=== PATIENT | female | born 1945 | race Caucasian/White ===

== ENCOUNTER 2017-04-13 14:25 | Outpatient (CLI) | payer MEDICARE, MEDICAID ==
[~2017-04-13 14:25] MED LIST: ACET325T53 PO; ASCO500C16 PO; ATOR10TA PO; BISA-79 RC; DIVA500T2 PO; FURO-144 PO; GABA-534 PO; HYDR-552 PO; LOSA50TA21 PO; MAGN400O4 PO; MULT1TAB73 PO; NA P133E RC; OXYC-128 PO; POTA20TA83 PO; RANI150C4 PO; SPIR25TA4 PO; TRAM50TA92 PO; ZOLP5TAB2 PO
[2017-04-13] MEDS ORDERED: DILT120C87 PO (16:37)
[2017-04-13] MEDS ORDERED: AMIN30LI4 PO (16:37)
[2017-04-13] MEDS ORDERED: FURO20TA4 PO (16:37)
[2017-04-13] MEDS ORDERED: PANT40TA2 PO (16:37)
[2017-04-13] MEDS ORDERED: CALC-108 PO (16:37)
[2017-04-13] MEDS ORDERED: MULT-659 PO (16:37)
[2017-04-13] MEDS ORDERED: NUTR1PAC14 PO (16:37)
== END 2017-04-13 23:59 | disposition home or self-care (01) ==
LOC: WOU 14:25
PROVIDERS: ATTEND Surgery
DX: I70.245 Atherosclerosis of native arteries of left leg with ulceration of other part of foot (principal); L97.523 Non-pressure chronic ulcer of other part of left foot with necrosis of muscle; I70.235 Atherosclerosis of native arteries of right leg with ulceration of other part of foot; L97.514 Non-pressure chronic ulcer of other part of right foot with necrosis of bone; F03.90 Unspecified dementia, unspecified severity, without behavioral disturbance, psychotic disturbance, mood disturbance, and anxiety; R60.0 Localized edema; L03.116 Cellulitis of left lower limb; L03.115 Cellulitis of right lower limb; I25.10 Atherosclerotic heart disease of native coronary artery without angina pectoris; I10 Essential (primary) hypertension
CPT/HCPCS: 11043; 11044; A6402

== ENCOUNTER 2017-04-13 15:59 | Inpatient (IN) | payer MEDICARE, MEDICAID ==
[~2017-04-13] VITALS: Ht 165.1 cm; Wt 77.6 kg
[2017-04-13] MEDS ORDERED: NUTR1PAC14 PO (16:37)
[2017-04-13] MEDS ORDERED: AMIN30LI4 PO (16:37)
[2017-04-13] MEDS ORDERED: PANT40TA2 PO (16:37)
[2017-04-13] MEDS ORDERED: DILT120C87 PO (16:37)
[2017-04-13] MEDS ORDERED: CALC-108 PO (16:37)
[2017-04-13] MEDS ORDERED: FURO20TA4 PO (16:37)
[2017-04-13] MEDS ORDERED: MULT-659 PO (16:37)
[2017-04-13 16:48] LABS: BASOPHILS % (AUTO) 0.5 % (0.0-2.0); EOSINOPHILS # (AUTO) 0.2 /CMM (0.0-0.7); EOSINOPHILS % (AUTO) 2.7 % (0.0-6.0); HEMATOCRIT 43 % (33-45); HEMOGLOBIN 14.1 g/dL (11.5-14.8); LYMPHOCYTES # (AUTO) 1.5 /CMM (0.8-4.8); LYMPHOCYTES % (AUTO) 17.1 % (20.0-44.0); MEAN CORPUSCULAR HEMOGLOBIN 29 PG (26.0-33.0); MEAN CORPUSCULAR HGB CONC 33 g/dl (31.0-36.0); MEAN CORPUSCULAR VOLUME 88 fL (82-100); MONOCYTES # (AUTO) 0.8 /CMM (0.1-1.30); MONOCYTES % (AUTO) 8.7 % (2.0-12.0); NEUTROPHILS # (AUTO) 6.5 /CMM (1.8-8.9); PLATELET COUNT (AUTO) 352 /CMM (150-450); RDW COEFFICIENT OF VARIATION 12.3 (11.5-15.0); RED BLOOD CELL COUNT(AUTO) 4.87 MIL/uL (4.0-5.2)
--- NOTE | 2017-04-13 16:52 | NUR ---
BIB WOUND CARE NURSE FROM [facility] FOR [facility]MISSION FOR OSTEOMYELITIS, PATIENT IS VERBALLY RESPONSIVE, A/OX 1, HAS CAREGIVER AT BEDSIDE, SEEN BY MD AT BEDSIDE, WILL CONTINUE TO MONITOR CLOSELY.
[2017-04-13 16:57] LABS: CREATININE 0.8 mg/dL (0.6-1.3); POTASSIUM 3.5 mmol/L (3.5-5.1)
[2017-04-13 17:01] LABS: CALCIUM, SERUM 8.7 mg/dL (8.5-10.1); INR 0.99 (0.87-1.13); PROTHROMBIN TIME 10.3 SECS (9.5-12.7)
--- NOTE | 2017-04-13 17:07 | NUR ---
SACK REPAIRER AT BEDSIDE
--- NOTE | 2017-04-13 17:30 | NUR ---
REPORT GIVEN TO EDDIE OGDEN
[2017-04-13 20:00] VITALS: BP 152/83
[2017-04-13] MEDS ORDERED: ACETAMINOPHEN 325 MG TABLET PO PRN (20:00)
[2017-04-13] MEDS ORDERED: MAGNESIUM HYDROXIDE 30 ML UDC PO PRN (20:00)
[2017-04-13] MEDS ORDERED: HOME MED MISCELLANEOUS XX SCH (20:00)
[2017-04-13] MEDS ORDERED: TRAMADOL HCL 50 MG TABLET PO PRN (20:00)
--- NOTE | 2017-04-13 20:00 | NUR ---
MS RN NOTE: PATIENT RESTING IN BED, NO ACUTE DISTRESS NOTED. BREATHING EVEN AND UNLABORED, NO SOB NOTED. WOUNDS TO BOTH FEET WRAPPED WITH KERLIX. IV TO LAC IN PLACE. BED LOCKED AND IN LOWEST POSITION, CALL LIGHT IN REACH. WILL CONTINUE TO MONITOR.
--- NOTE | 2017-04-14 03:15 | NUR ---
MS RN NOTE: PATIENT SLEEPING IN BED, NO ACUTE DISTRESS NOTED. BREATHING EVEN AND UNLABORED, NO SOB NOTED. BED LOCKED AND IN LOWEST POSITION, CALL LIGHT IN REACH. WILL CONTINUE TO MONITOR.
--- NOTE | 2017-04-14 06:15 | NUR ---
MS RN NOTE: PATIENT RESTING IN BED, NO ACUTE DISTRESS NOTED. BREATHING EVEN AND UNLABORED, NO SOB NOTED. WOUNDS TO BOTH FEET WRAPPED WITH KERLIX. IV TO LAC IN PLACE. BED LOCKED AND IN LOWEST POSITION, CALL LIGHT IN REACH. WILL ENDORSE TO DAY NURSE TO CONTINUE WITH PLAN OF CARE.
[2017-04-14 06:38] LABS: BASOPHILS % (AUTO) 0.2 % (0.0-2.0); EOSINOPHILS # (AUTO) 0.3 /CMM (0.0-0.7); HEMATOCRIT 41 % (33-45); HEMOGLOBIN 13.7 g/dL (11.5-14.8); LYMPHOCYTES # (AUTO) 1.5 /CMM (0.8-4.8); MEAN CORPUSCULAR HEMOGLOBIN 30 PG (26.0-33.0); MEAN CORPUSCULAR HGB CONC 34 g/dl (31.0-36.0); MEAN CORPUSCULAR VOLUME 88 fL (82-100); MONOCYTES # (AUTO) 0.7 /CMM (0.1-1.30); MONOCYTES % (AUTO) 7.4 % (2.0-12.0); NEUTROPHILS # (AUTO) 6.4 /CMM (1.8-8.9); NEUTROPHILS % (AUTO) 72.4 % (43.0-81.0); PLATELET COUNT (AUTO) 314 /CMM (150-450); RDW COEFFICIENT OF VARIATION 13.1 (11.5-15.0); RED BLOOD CELL COUNT(AUTO) 4.61 MIL/uL (4.0-5.2); WHITE BLOOD COUNT (AUTO) 8.9 K/uL (4.3-11.0)
[2017-04-14 06:54] LABS: CALCIUM, SERUM 8.5 mg/dL (8.5-10.1); CREATININE 0.6 mg/dL (0.6-1.3); MAGNESIUM 1.9 mg/dL (1.8-2.4); PHOSPHORUS 3.4 mg/dL (2.5-4.9); POTASSIUM 3.6 mmol/L (3.5-5.1)
[2017-04-14 07:00] LABS: PREALBUMIN 17.6 MG/DL (18.0-35.7); THYROID STIMULATING HORMONE 4.429 uIU/mL (0.358-3.74)
--- NOTE | 2017-04-14 07:20 | NUR ---
RN MS NOTES PATIENT IN BED, ALERT AND ORIENTED, NO DISTRESS NOTED, NO S/SX OF PAIN, TURNED AND REPOSITIONED, NEEDS ATTENDED AND MET, CALL LIGHT WITHIN REACH, SAFETY MEASURES IN PLACED, WILL CONTINUE TO MONITOR.
[2017-04-14 08:00] VITALS: BP 149/87
[2017-04-14] MEDS: PANTOPRAZOLE 40 MG TABLET.DR PO SCH (09:01)
[2017-04-14] MEDS: DILTIAZEM HCL CD 120 MG PO SCH (09:02)
[2017-04-14] MEDS: GABAPENTIN 300 MG CAPSULE PO SCH ×2 (09:02→17:32)
[2017-04-14] MEDS: MULTIVIT, IRON, MIN NO. 8, FA 1 TAB TABLET PO SCH (09:02)
[2017-04-14] MEDS: FUROSEMIDE 20 MG TABLET PO SCH (09:02)
[2017-04-14] MEDS: PROSOURCE / PROSTAT (PYXIS) 30 ML UDC PO SCH (09:02)
[2017-04-14] MEDS: ASCORBIC ACID 500 MG TABLET PO SCH (09:02)
[2017-04-14] MEDS: CALCIUM CARB 600MG /VIT D 1 EACH TABLET PO SCH (09:02)
[2017-04-14] MEDS: POTASSIUM CHLORIDE 20 MEQ TAB.PRT.SR PO SCH (09:02)
[2017-04-14] MEDS ORDERED: IV SET PRIMARY PUMP SET 1 EA INFUS.SET MC ONE (09:04)
[2017-04-14] MEDS ORDERED: IV NS 0.9% 250 ML IV ONE (09:04)
[2017-04-14] MEDS ORDERED: FEE PK DOSING 1 MIN EA MC ONE (10:04)
[2017-04-14] MEDS: VANCOMYCIN 0.75 GM in IV D5W 250 ML IV SCH ×2 (10:19→21:48)
[2017-04-14] MEDS ORDERED: SECONDARY IV SET 1 EA INFUS.SET MC ONE (10:27)
--- NOTE | 2017-04-14 11:13 | NUR ---
WOUND CARE CONSULT PATIENT SEEN AND SKIN INTEGRITY ASSESSMENT DONE WITH THE EXCEPTION OF BILATERAL FOOT ULCERATIONS. WOUND CARE WILL DEFER FOOT ULCER CARE AND TREATMENT TO PODIATRY SURGICAL TEAM AT THIS TIME. THERE ARE NOTED ORDERS FOR TREATMENT FOR THE BILATERAL FOOT ULCERS IN PLACE. PATIENT WITH CARMEN AT 13, PATIENT IS INCONTINENT. 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 RECOMMEND TURNING SCHED Q 2 HOURS PATIENT CONDITION PERMITS, BILATERAL HEEL FLOATING PATIENT CONDITION PERMITS, THIS WILL BE DIFFICULT DUE TO THE CONTRACTURES. CONTINUE USE OF Z GUARD FOR SKIN/MOISTURE MANAGEMENT. ALL SKIN MANAGEMENT DISCUSSED WITH NURSING STAFF AT THE BEDSIDE. Addendum: 04/14/17 at 1125 by SANAZ CLEMENTE WNDNU BILINGUAL SPEECH LANGUAGE PATHOLOGIST ADDENDUM PATIENT ON BETTE ISOFLEX LOW AIRLOSS SPECIALTY BED, SACRAL AND BUTTOCKS REGIONS INTACT. NO FURTHER REDNESS NOTED AT THIS TIME.
[2017-04-14] MEDS: Z GUARD REMEDY 2 OZ OINT TP SCH (11:30)
[2017-04-14] MEDS ORDERED: Z GUARD REMEDY 2 OZ OINT TP PRN (11:30)
[2017-04-14] MEDS: CADEXOMER IODINE 40 GM TUBE TP SCH (11:42)
--- NOTE | 2017-04-14 12:22 | NUR ---
RN MS NOTES INFORMED DR. CISNEROS RE" PATIENT'S URINE WITH FOUL ODOR, RECEIVED NEW ORDER FOR UA PROFILE, ORDER NOTED AND CARRIED OUT. WOUND TREATMENT RENDERED, TURNED AND REPOSITIONED, WILL CONTINUE TO MONITOR.
--- NOTE | 2017-04-14 13:46 | NUR ---
RN MS NOTES INFORMED RONNIE FIRE WARDEN MRI CANNOT BE DONE DUE TO BLE CONTRACTION.
--- NOTE | 2017-04-14 15:00 | NUR ---
RN MS NOTES RECEIVED NEW ORDER FROM RONNIE FOR A CT WITH CONTRAST OF BILATERAL FOOT, ARTERIAL AND VENOUS DOPPLER COMPLETED. PATIENT TURNED AND REPOSITIONED, BILATERAL HEELS OFFLOADED, Z-GUARD APPLIED FOR REDNESS ON SACRAL, CALL LIGHT WITHIN REACH, WILL CONTINUE TO MONITOR.
[2017-04-14 16:00] VITALS: BP 138/79
[2017-04-14 17:03] LABS: APPEARANCE,URINE SL CLOUDY (CLEAR); BILIRUBIN,URINE NEGATIVE (NEGATIVE); BLOOD, URINE NEGATIVE Ery/uL (NEGATIVE); COLOR,URINE YELLOW (YELLOW); KETONES,URINE NEGATIVE (NEGATIVE); LEUKOCYTE ESTERASE ,URINE 2+ (NEGATIVE); NITRITE, URINE POSITIVE (NEGATIVE); PH,URINE 6.5 (5.0-8.0); PROTEIN,URINE NEGATIVE (NEGATIVE); UGLUCOSE NEGATIVE (NEGATIVE); UROBILINOGEN,URINE 0.2 EU/dL (0.2)
[2017-04-14 17:10] LABS: RBC,URINE 0-2 /HPF (0-2); SQUAMOUS EPITHELIAL CELL,UR Few /HPF (None Seen)
[2017-04-14 17:11] LABS: BACTERIA,URINE 2+ /HPF (None Seen)
--- NOTE | 2017-04-14 18:57 | NUR ---
RN MS NOTES PATIENT IN BED, ALERT AND ORIENTED, CONFUSED, TURNED AND REPOSITIONED, OFFLOADED BILATERAL HEELS, WOUND TREATMENT RENDERED, URINE CULTURE STILL PENDING, CT SCAN WITH CONTRAST STILL PENDING, RADIOLOGY AWARE, ALL NEEDS ATTENDED AND MET, CALL LIGHT WITHIN REACH, WILL ENDORSE TO PEDIATRIC DENTAL HYGIENIST FOR GOPAL.
--- NOTE | 2017-04-14 20:02 | NUR ---
MS OPENING NOTES RECEIVED PT IN ROOM. SITTING UP IN BED. AWAKE. CONFUSED. RESPIRATION EVEN AND UNLABORED. NO SOB. IV ON LAC#20 PATENT AND INTACT. NO REDNESS/INFILTRATION NOTED. NO ACUTE DISTRESS NOTED. ON ISOLATION FOR MRSA NARES, ESBL. NO COMPLAIN OF PAIN/DISCOMFORT NOTED. FREE FROM FALLS AND INJURY. TURNED AND POSITIONED Q2 HRS. KEPT CLEAN AND DRY AT ALL TIMES. BED IN LOW AND LOCKED POSITION. SIDERAILS UP X2. CALL LIGHT WITHIN REACH. WILL CONTINUE TO MONITOR FOR SAFETY.
[2017-04-14 20:44] VITALS: BP 169/93
--- NOTE | 2017-04-15 05:40 | NUR ---
MSN NOTES PATIENT RESTING IN BED. RESPIRATION EVEN AND UNLABORED. NO SOB. NO ACUTE DISTRESS NOTED. NO COMPLAIN OF PAIN/DISCOMFORT AT THIS TIME. KEPT CLEAN AND DRY. ALL NEEDS ATTENDED AND ANTICIPATED. BED IN LOW AND LOCKED POSITION. SIDERAILS UPX2. CALL LIGHT WITHIN REACH. WILL ENDORSE TO NEXT SHIFT NURSE FOR CONTINUITY OF CARE.
[2017-04-15 06:46] LABS: CALCIUM, SERUM 8.4 mg/dL (8.5-10.1); CREATININE 0.7 mg/dL (0.6-1.3); POTASSIUM 3.6 mmol/L (3.5-5.1)
--- NOTE | 2017-04-15 07:35 | NUR ---
RN MS NOTES PATIENT IN BED, ALERT AND ORIENTED, NO S/SX OF PAIN OR DISCOMFORT AT THIS TIME, BREATHING EVEN AND UNLABORED, TURNED AND REPOSITION, KEPT SKIN CLEAN AND DRY, NEEDS ATTENDED, CALL LIGHT WITHIN REACH, WILL CONTINUE TO MONITOR.
[2017-04-15 08:00] VITALS: BP 128/70
[2017-04-15] MEDS: GABAPENTIN 300 MG CAPSULE PO SCH ×2 (08:45→17:27)
[2017-04-15] MEDS: ASCORBIC ACID 500 MG TABLET PO SCH (08:45)
[2017-04-15] MEDS: PANTOPRAZOLE 40 MG TABLET.DR PO SCH (08:45)
[2017-04-15] MEDS: CALCIUM CARB 600MG /VIT D 1 EACH TABLET PO SCH (08:45)
[2017-04-15] MEDS: DILTIAZEM HCL CD 120 MG PO SCH (08:46)
[2017-04-15] MEDS: POTASSIUM CHLORIDE 20 MEQ TAB.PRT.SR PO SCH (08:46)
[2017-04-15] MEDS: PROSOURCE / PROSTAT (PYXIS) 30 ML UDC PO SCH (08:46)
[2017-04-15] MEDS: FUROSEMIDE 20 MG TABLET PO SCH (08:46)
[2017-04-15] MEDS: MULTIVIT, IRON, MIN NO. 8, FA 1 TAB TABLET PO SCH (08:51)
[2017-04-15] MEDS: CADEXOMER IODINE 40 GM TUBE TP SCH (08:52)
[2017-04-15] MEDS: Z GUARD REMEDY 2 OZ OINT TP SCH (08:52)
[2017-04-15] MEDS: VANCOMYCIN 0.75 GM in IV D5W 250 ML IV SCH ×2 (11:24→21:33)
--- NOTE | 2017-04-15 13:07 | NUR ---
FOR CT BILAT FOOT, PT VERY CONTRACTED AND HAS DEMENTIA. UNABLE TO STRAIGHTEN LEGS RN AWARE
--- NOTE | 2017-04-15 13:46 | NUR ---
RN MS NOTES NO DISTRESS NOTED, CT SCAN STILL PENDING, NO S/SX OF PAIN OR DISCOMFORT NOTED, TURNED AND REPOSITIONED, SKIN KEPT CLEAN AND DRY, NEEDS ATTENDED, RONNIE GREEN MADE ROUNDS, WILL CONTINUE TO MONITOR.
[2017-04-15 16:00] VITALS: BP 133/85
--- NOTE | 2017-04-15 17:25 | NUR ---
WENT TO SEE THE PT. AROUND 1520, PT. CONTRACTED, UNABLE TO STRAIGHT LEG FOR CT. INFORMED NURSE.
--- NOTE | 2017-04-15 17:48 | NUR ---
RN MS NOTES INFORMED RONNIE CT SCAN CANNOT BE COMPLETED PER SIGNAL OPERATOR LINGUIST, PER GEODETIC COMPUTATOR OK, WILL ORDER X-RAY OF THE FOOT.
[2017-04-15 19:00] VITALS: BP 128/69
--- NOTE | 2017-04-15 19:25 | NUR ---
RN MS NOTES IN STABLE CONDITION, TURNED AND REPOSITIONED Q2H AND PRN, WOUND TREATMENT DONE, KEPT SKIN CLEAN AND DRY, PIV PATENT AND INTACT, NEEDS ATTENDED AND MET, CALL LIGHT WITHIN REACH, ENDORSED TO MEASURER FOR GOPAL.
--- NOTE | 2017-04-15 19:30 | NUR ---
MS RN NOTES RECEIVED ON BED ON RIGHT SIDE POSITION,BREATHING REGULAR,NOT IN ANY FORM OF DISTRESS.SALINE LOCK LFA INTACT AND PATENT.CONTRACTED BOTH LOWER EXTREMITIES.FALL PRECAUTION OBSERVED,BED ON LOWEST POSITION AND LOCK.CONTACT ISOLATION PRECAUTION FOR HX MRSA NARES AND ESBL BLOOD AND URINE.REPOSITION PER PROTOCOL.WILL CONTINUE TO MONITOR STATUS
--- NOTE | 2017-04-15 22:00 | NUR ---
MS RN NOTES DUE VANCOMYCIN 0.75GM IVPB HUNG
--- NOTE | 2017-04-16 05:30 | NUR ---
MS RN NOTES MORNING CARE RENDERED.DRESSING CHANGED DONE ON BILATERAL FOOT.
--- NOTE | 2017-04-16 06:36 | NUR ---
MS RN NOTES FAIRLY RESTED,REPOSITION PER PROTOCOL.IN NO ACUTE DISTRESS.WILL ENDORSED TO DAY NURSE FOR GOPAL.
--- NOTE | 2017-04-16 07:20 | NUR ---
RN MS NOTES PATIENT IN BED, SLEEPING BUT EASILY AROUSABLE, NO DISTRESS NOTED, KEPT SKIN CLEAN AND DRY, TURNED AND REPOSITIONED, OFFLOADED BILATERAL HEELS, NEEDS ATTENDED AND MET, SAFETY MEASURES IN PLACED, CALL LIGHT WITHIN REACH, WILL CONTINUE TO MONITOR.
[2017-04-16 07:37] LABS: CALCIUM, SERUM 8.5 mg/dL (8.5-10.1); CREATININE 0.8 mg/dL (0.6-1.3); POTASSIUM 3.5 mmol/L (3.5-5.1)
[2017-04-16 08:00] VITALS: BP 114/60
[2017-04-16] MEDS: PANTOPRAZOLE 40 MG TABLET.DR PO SCH (08:48)
[2017-04-16] MEDS: GABAPENTIN 300 MG CAPSULE PO SCH ×2 (08:49→16:50)
[2017-04-16] MEDS: ASCORBIC ACID 500 MG TABLET PO SCH (08:49)
[2017-04-16] MEDS: DILTIAZEM HCL CD 120 MG PO SCH (08:49)
[2017-04-16] MEDS: CALCIUM CARB 600MG /VIT D 1 EACH TABLET PO SCH (08:49)
[2017-04-16] MEDS: POTASSIUM CHLORIDE 20 MEQ TAB.PRT.SR PO SCH (08:49)
[2017-04-16] MEDS: FUROSEMIDE 20 MG TABLET PO SCH (08:49)
[2017-04-16] MEDS: PROSOURCE / PROSTAT (PYXIS) 30 ML UDC PO SCH (08:49)
[2017-04-16] MEDS: MULTIVIT, IRON, MIN NO. 8, FA 1 TAB TABLET PO SCH (08:49)
[2017-04-16] MEDS: Z GUARD REMEDY 2 OZ OINT TP SCH (08:50)
[2017-04-16] MEDS: CADEXOMER IODINE 40 GM TUBE TP SCH (08:50)
[2017-04-16] MEDS: VANCOMYCIN 0.75 GM in IV D5W 250 ML IV SCH ×2 (09:25→21:58)
[2017-04-16] MEDS ORDERED: PIPERACILLIN /TAZOBACTAM 3.375 G in IV D5W 50 ML IV SCH (15:00)
[2017-04-16 16:00] VITALS: BP 131/72
[2017-04-16] MEDS ORDERED: SECONDARY IV SET 1 EA INFUS.SET MC ONE (16:46)
[2017-04-16] MEDS: PIPERACILLIN /TAZOBACTAM 3.375 G in IV D5W 50 ML IV SCH ×2 (16:49→23:44)
--- NOTE | 2017-04-16 18:00 | NUR ---
RN MS NOTES PLACED A CALL TO [facility] TO [address] DR. PATHAK OR ANY STEAM SHOVEL OILER MD, TO RELAY URINE CULTURE RESULT OF ESBL IN URINE, WILL WAIT FOR A CALL BACK.
--- NOTE | 2017-04-16 18:27 | NUR ---
RN MS NOTES X-RAY COMPLETED, RESULT STILL PENDING, PATIENT IS IN NO DISTRESS, KEPT SKIN CLEAN AND DRY, TURNED AND REPOSITIONED, OFFLOADED KEN. HEELS, WOUND TREATMENT DONE ON BILATERAL FOOT, ALL NEEDS ATTENDED AND MET, DUE MEDS GIVEN ORDERED, CALL LIGHT WITHIN REACH, WILL ENDORSE TO NEWS CORRESPONDENT FOR GOPAL.
[2017-04-16 20:00] VITALS: BP 129/70
[2017-04-17] MEDS: PIPERACILLIN /TAZOBACTAM 3.375 G in IV D5W 50 ML IV SCH ×2 (06:04→11:33)
--- NOTE | 2017-04-17 06:32 | NUR ---
MS RN NOTES AWAKE & RESPONSIVE. NOT IN ANY DISTRESS. NO SOB NOTED. DENIES ANY PAIN OR DISCOMFORT AT THIS TIME. WITH IVF INFUSING WELL. AM CARE DONE. MONITORED ACCORDINGLY. CALL LIGHT WITHIN REACH. BED IN LOWEST POSITION. SR UP X 3 WITH BED ALARM ON FOR SAFETY. WILL ENDORSE TO NEXT SHIFT.
[2017-04-17 07:04] LABS: CALCIUM, SERUM 8.4 mg/dL (8.5-10.1); CREATININE 0.8 mg/dL (0.6-1.3); POTASSIUM 3.1 mmol/L (3.5-5.1)
--- NOTE | 2017-04-17 07:10 | NUR ---
MS RN OPENING NOTES RECEIVED PT FROM NIGHTSHIFT NURSE IN STABLE CONDITION. A/O 2. RESPONDS TO TOUCH AND NAME. PT. IS CONFUSED AND CONTRACTED. NO SOB OR SIGNS OF DISTRESS NOTED. 2+ PITTING EDEMA PRESENT ON BILATERAL FEET ALONG WITH WOUNDS WHICH ARE LIGHTLY WRAPPED IN KERLIX. IV PRESENT ON RIGHT HAND 24 G PATENT AND INTACT. NO REDNESS OR INFILTRATION NOTED. BED IN LOW LOCKED POSITION, SIDE RAILS UP X3, CALL LIGHT WITHIN REACH. WILL CONTINUE TO MONITOR. .
[2017-04-17 08:00] VITALS: BP 110/62
[2017-04-17] MEDS: FUROSEMIDE 20 MG TABLET PO SCH (08:35)
[2017-04-17] MEDS: PANTOPRAZOLE 40 MG TABLET.DR PO SCH (08:36)
[2017-04-17] MEDS: POTASSIUM CHLORIDE 20 MEQ TAB.PRT.SR PO SCH ×3 (08:36→12:33)
[2017-04-17] MEDS: ASCORBIC ACID 500 MG TABLET PO SCH (08:36)
[2017-04-17] MEDS: CALCIUM CARB 600MG /VIT D 1 EACH TABLET PO SCH (08:36)
[2017-04-17] MEDS: GABAPENTIN 300 MG CAPSULE PO SCH ×2 (08:37→17:43)
[2017-04-17] MEDS: CADEXOMER IODINE 40 GM TUBE TP SCH (08:37)
[2017-04-17] MEDS: DILTIAZEM HCL CD 120 MG PO SCH (08:37)
[2017-04-17] MEDS: PROSOURCE / PROSTAT (PYXIS) 30 ML UDC PO SCH (08:37)
[2017-04-17] MEDS: MULTIVIT, IRON, MIN NO. 8, FA 1 TAB TABLET PO SCH (08:37)
[2017-04-17] MEDS: Z GUARD REMEDY 2 OZ OINT TP SCH (08:38)
--- NOTE | 2017-04-17 08:40 | NUR ---
MS ALIN NOTES 0900 LASIX WAS HELD DUE TO LOW K+ OF 3.1
[2017-04-17] MEDS: VANCOMYCIN 0.75 GM in IV D5W 250 ML IV SCH (09:55)
[2017-04-17 16:00] VITALS: BP 136/71
[2017-04-17] MEDS: LACTOBACILLUS RHAMNOSUS GG 1 EACH CAP.SPRINK PO SCH (17:43)
[2017-04-17] MEDS ORDERED: SECONDARY IV SET 1 EA INFUS.SET MC ONE (18:06)
[2017-04-17] MEDS: MEROPENEM 1 G in IV NS 0.9% 100 ML IV SCH (18:13)
--- NOTE | 2017-04-17 19:00 | NUR ---
MS RN CLOSING NOTES PT. IN STABLE CONDITION. ALL NEEDS MET AND ORDERS CARRIED OUT ACCORDINGLY DURING SHIFT. NO ACUTE CHANGES IN CONDITION DURING SHIFT. PT. WAS KEPT DRY, HEELS WERE OFFLOADED, AND TURNED AND REPOSITIONED Q2 HR. WILL ENDORSE TO NIGHTSHIFT NURSE FOR GOPAL
--- NOTE | 2017-04-17 19:34 | NUR ---
ms/rn opening notes Patient alert, orientedx4. able to verbalize needs and stated" I want to leave AMA". also observed he removed his NG tube and verbalized that he does not need it. , Dr. Karla Clark was contacted about patients request and md made aware about ng tube removed by patient . Lumber Scaler, ALIN Yee was informed. patient agreed to sign the AMA paper. Assisted the patient. removed id band. belonging refused to be checked upon admission. and assisted to elevator.
[2017-04-17 20:00] VITALS: BP 135/72
--- NOTE | 2017-04-17 20:00 | NUR ---
ms/rn opening notes patient in bed, semi murphy position. alert, oriented x1. can respond with simple words. and make good eye contact. no s/s of sob or distress. infection control measures provided for isolation precaution .
[2017-04-17] MEDS: VANCOMYCIN 1 GM in IV D5W 250 ML IV SCH (22:08)
[2017-04-18] MEDS: MEROPENEM 1 G in IV NS 0.9% 100 ML IV SCH ×2 (05:19→17:32)
--- NOTE | 2017-04-18 06:22 | NUR ---
ms/rn notes patient in bed, awake, alertx1. being monitored and require assistance to remind patient not to pull/remove iv . iv atb administered w/ no s/s of adverse effects. reposition for comfort and wound care provided on ble/heels. will continue to monitor and endorse to am rn for continuity of care.
[2017-04-18 07:12] LABS: CALCIUM, SERUM 8.6 mg/dL (8.5-10.1); CREATININE 0.7 mg/dL (0.6-1.3); POTASSIUM 3.8 mmol/L (3.5-5.1)
--- NOTE | 2017-04-18 07:20 | NUR ---
MS RN NOTES: PT IN BED, AWAKE, REMAINS A/O X1, ABLE TO MAKE NEEDS KNOWN,REORIENTED NEEDED, DENIES ANY PAIN OR DISCOMFORT AT THIS TIME, REMAINS ON RA, RESPIRATIONS EVEN AND UNLABORED. IV ACCESS PATENT AND INTACT, NO REDNESS OR INFILTRATION NOTED. VS REMAINS STABLE, ALL NEEDS ATTENDED. WILL CONTINUE TO MONITOR
[2017-04-18 08:00] VITALS: BP 149/100
[2017-04-18] MEDS: POTASSIUM CHLORIDE 20 MEQ TAB.PRT.SR PO SCH (08:58)
[2017-04-18] MEDS: CALCIUM CARB 600MG /VIT D 1 EACH TABLET PO SCH (08:58)
[2017-04-18] MEDS: MULTIVIT, IRON, MIN NO. 8, FA 1 TAB TABLET PO SCH (08:58)
[2017-04-18] MEDS: LACTOBACILLUS RHAMNOSUS GG 1 EACH CAP.SPRINK PO SCH ×2 (08:58→16:11)
[2017-04-18] MEDS: PROSOURCE / PROSTAT (PYXIS) 30 ML UDC PO SCH (08:58)
[2017-04-18] MEDS: DILTIAZEM HCL CD 120 MG PO SCH (08:59)
[2017-04-18] MEDS: FUROSEMIDE 20 MG TABLET PO SCH (08:59)
[2017-04-18] MEDS: GABAPENTIN 300 MG CAPSULE PO SCH ×2 (08:59→16:11)
[2017-04-18] MEDS: PANTOPRAZOLE 40 MG TABLET.DR PO SCH (09:00)
[2017-04-18] MEDS: ASCORBIC ACID 500 MG TABLET PO SCH (09:00)
[2017-04-18] MEDS: CADEXOMER IODINE 40 GM TUBE TP SCH (09:05)
[2017-04-18] MEDS: Z GUARD REMEDY 2 OZ OINT TP SCH (09:05)
[2017-04-18] MEDS: VANCOMYCIN 1 GM in IV D5W 250 ML IV SCH ×2 (09:41→22:09)
[2017-04-18] MEDS ORDERED: ONDANSETRON HCL/PF 4 MG/2 ML VIAL IV PRN (13:30)
[2017-04-18 16:00] VITALS: BP 127/78
--- NOTE | 2017-04-18 16:30 | NUR ---
MS RN NOTES RECEIVED ON BED, ON SITTING POSITION,CONFUSED BUT CALM.CONTRACTED ON BOTH LOWER EXTREMITIES.INCONTINENT OF URINE,BILATERAL FOOT DRESSING INTACT AND DRY.REPOSITION PER PROTOCOL,ISOLATION PRECAUTION FOR ESBL URINE.SALINE LOCK LOCK RFA INTACT AND PATENT.WILL CONTINUE TO MONITOR STATUS.
--- NOTE | 2017-04-18 19:11 | NUR ---
MS RN NOTES: PT IN BED, AWAKE, REMAINS A/O X1, ABLE TO MAKE NEEDS KNOWN,REORIENTED NEEDED, DENIES ANY PAIN OR DISCOMFORT AT THIS TIME, REMAINS ON RA, RESPIRATIONS EVEN AND UNLABORED. IV ACCESS PATENT AND INTACT, NO REDNESS OR INFILTRATION NOTED. VS REMAINS STABLE, ALL NEEDS ATTENDED.ENDORSED TO NEXT SHIFT FOR CONTINUITY OF CARE
[2017-04-18 20:00] VITALS: BP 144/92
[2017-04-18] MEDS: HEPARIN SODIUM, PORCINE 5000 UNITS/1 ML VIAL SQ SCH (21:01)
--- NOTE | 2017-04-18 22:00 | NUR ---
MS RN NOTES DUE VANCOMYCIN IVPB HUNG
--- NOTE | 2017-04-18 22:30 | NUR ---
MS RN NOTES PM CARE RENDERED BY MARCELINO LUO,REPOSITION TO LEFT SIDE
--- NOTE | 2017-04-19 02:00 | NUR ---
MS RN NOTES REPOSITION,KEPT WARM AND COMFORTABLE
--- NOTE | 2017-04-19 05:00 | NUR ---
MS RN NOTES MORNING CARE RENDERED BY MARCELINO LUO,REPOSITION
[2017-04-19] MEDS: MEROPENEM 1 G in IV NS 0.9% 100 ML IV SCH ×2 (06:00→17:13)
--- NOTE | 2017-04-19 06:00 | NUR ---
MS RN NOTES DUE MERREM 1GM IVPB HUNG
--- NOTE | 2017-04-19 07:11 | NUR ---
MS RN NOTES NO SIGNIFICANT CHANGE IN STATUS,CONTINUE WITH PLAN OF CARE.ENDORSED TO DAPHNE OGDEN FOR GOPAL.
[2017-04-19 07:13] LABS: BASOPHILS % (AUTO) 0.2 % (0.0-2.0); EOSINOPHILS # (AUTO) 0.2 /CMM (0.0-0.7); EOSINOPHILS % (AUTO) 2.8 % (0.0-6.0); HEMATOCRIT 41 % (33-45); HEMOGLOBIN 13.9 g/dL (11.5-14.8); LYMPHOCYTES # (AUTO) 1.7 /CMM (0.8-4.8); LYMPHOCYTES % (AUTO) 20.5 % (20.0-44.0); MEAN CORPUSCULAR HEMOGLOBIN 30 PG (26.0-33.0); MEAN CORPUSCULAR HGB CONC 34 g/dl (31.0-36.0); MEAN CORPUSCULAR VOLUME 88 fL (82-100); MONOCYTES # (AUTO) 0.7 /CMM (0.1-1.30); MONOCYTES % (AUTO) 8.1 % (2.0-12.0); NEUTROPHILS # (AUTO) 5.6 /CMM (1.8-8.9); NEUTROPHILS % (AUTO) 68.4 % (43.0-81.0); PLATELET COUNT (AUTO) 306 /CMM (150-450); RDW COEFFICIENT OF VARIATION 13.4 (11.5-15.0); RED BLOOD CELL COUNT(AUTO) 4.64 MIL/uL (4.0-5.2); WHITE BLOOD COUNT (AUTO) 8.2 K/uL (4.3-11.0)
[2017-04-19 07:24] LABS: INR 1.01 (0.87-1.13); PROTHROMBIN TIME 10.8 SECS (9.5-12.7)
[2017-04-19 07:36] LABS: CHOLESTEROL 161 mg/dL (<200); HDL CHOLESTEROL 30 mg/dL (40-60); LDL 108 mg/dL (0-99); TRIGLYCERIDES 135 mg/dL (30-150)
[2017-04-19 07:37] LABS: CALCIUM, SERUM 8.6 mg/dL (8.5-10.1); CARBON DIOXIDE 26 mmol/L (21-32); CHLORIDE 107 mmol/L (98-107); CREATININE 0.7 mg/dL (0.6-1.3); GLUCOSE 87 mg/dL (74-106); PHOSPHORUS 3.2 mg/dL (2.5-4.9); POTASSIUM 3.5 mmol/L (3.5-5.1); SODIUM SERUM 142 mmol/L (136-145); UREA NITROGEN, BLOOD 13 mg/dL (7-18)
[2017-04-19 08:00] VITALS: BP 119/67
[2017-04-19] MEDS: MULTIVIT, IRON, MIN NO. 8, FA 1 TAB TABLET PO SCH (08:36)
[2017-04-19] MEDS: PANTOPRAZOLE 40 MG TABLET.DR PO SCH (08:36)
[2017-04-19] MEDS: GABAPENTIN 300 MG CAPSULE PO SCH ×2 (08:36→17:14)
[2017-04-19] MEDS: PROSOURCE / PROSTAT (PYXIS) 30 ML UDC PO SCH (08:36)
[2017-04-19] MEDS: ASCORBIC ACID 500 MG TABLET PO SCH (08:36)
[2017-04-19] MEDS: DILTIAZEM HCL CD 120 MG PO SCH (08:37)
[2017-04-19] MEDS: LACTOBACILLUS RHAMNOSUS GG 1 EACH CAP.SPRINK PO SCH ×2 (08:37→17:14)
[2017-04-19] MEDS: FUROSEMIDE 20 MG TABLET PO SCH (08:37)
[2017-04-19] MEDS: CALCIUM CARB 600MG /VIT D 1 EACH TABLET PO SCH (08:37)
[2017-04-19] MEDS: POTASSIUM CHLORIDE 20 MEQ TAB.PRT.SR PO SCH (08:37)
[2017-04-19] MEDS: CADEXOMER IODINE 40 GM TUBE TP SCH (08:42)
[2017-04-19] MEDS: Z GUARD REMEDY 2 OZ OINT TP SCH (08:42)
[2017-04-19] MEDS: HEPARIN SODIUM, PORCINE 5000 UNITS/1 ML VIAL SQ SCH ×2 (08:46→21:51)
[2017-04-19] MEDS: VANCOMYCIN 1 GM in IV D5W 250 ML IV SCH ×2 (10:00→18:31)
[2017-04-19] MEDS ORDERED: IV NS 0.9% 250 ML IV ONE (10:18)
[2017-04-19] MEDS ORDERED: IV SET PRIMARY PUMP SET 1 EA INFUS.SET MC ONE (10:18)
[2017-04-19] MEDS ORDERED: SECONDARY IV SET 1 EA INFUS.SET MC ONE (10:18)
[2017-04-19 16:00] VITALS: BP 114/69
--- NOTE | 2017-04-19 19:50 | NUR ---
MS RN NOTE: PATIENT RESTING IN BED, NO ACUTE DISTRESS NOTED. BREATHING EVEN AND UNLABORED, NO SOB NOTED. IV TO LFA IN PLACE AND MIDLINE TO ROSALIND IN PLACE, WRAPPED WITH KERLIX. ISOLATION PRECAUTIONS OBSERVED. BED LOCKED AND IN LOWEST POSITION, CALL LIGHT IN REACH. WILL CONTINUE TO MONITOR.
[2017-04-19 20:00] VITALS: BP 123/54
--- NOTE | 2017-04-20 02:00 | NUR ---
MS RN NOTE: PATIENT SLEEPING IN BED, NO ACUTE DISTRESS NOTED. BREATHING EVEN AND UNLABORED, NO SOB NOTE. BED LOCKED AND IN LOWEST POSITION, CALL LIGHT IN REACH. WILL CONTINUE TO MONITOR.
--- NOTE | 2017-04-20 06:10 | NUR ---
MS RN NOTE: PATIENT RESTING IN BED, NO ACUTE DISTRESS NOTED. BREATHING EVEN AND UNLABORED, NO SOB NOTED. IV TO LFA IN PLACE AND MIDLINE TO ROSALIND IN PLACE, WRAPPED WITH KERLIX. ISOLATION PRECAUTIONS OBSERVED. BED LOCKED AND IN LOWEST POSITION, CALL LIGHT IN REACH. WILL ENDORSE TO DAY NURSE TO CONTINUE WITH PLAN OF CARE.
[2017-04-20] MEDS: MEROPENEM 1 G in IV NS 0.9% 100 ML IV SCH ×2 (06:12→17:31)
[2017-04-20 06:39] LABS: BASOPHILS % (AUTO) 0.3 % (0.0-2.0); EOSINOPHILS # (AUTO) 0.3 /CMM (0.0-0.7); EOSINOPHILS % (AUTO) 3.3 % (0.0-6.0); HEMATOCRIT 39 % (33-45); HEMOGLOBIN 13.3 g/dL (11.5-14.8); LYMPHOCYTES # (AUTO) 1.5 /CMM (0.8-4.8); MEAN CORPUSCULAR HEMOGLOBIN 30 PG (26.0-33.0); MEAN CORPUSCULAR HGB CONC 34 g/dl (31.0-36.0); MEAN CORPUSCULAR VOLUME 88 fL (82-100); MONOCYTES # (AUTO) 0.8 /CMM (0.1-1.30); MONOCYTES % (AUTO) 8.8 % (2.0-12.0); NEUTROPHILS # (AUTO) 6.4 /CMM (1.8-8.9); NEUTROPHILS % (AUTO) 70.6 % (43.0-81.0); PLATELET COUNT (AUTO) 312 /CMM (150-450); RDW COEFFICIENT OF VARIATION 13.2 (11.5-15.0); RED BLOOD CELL COUNT(AUTO) 4.44 MIL/uL (4.0-5.2); WHITE BLOOD COUNT (AUTO) 9.1 K/uL (4.3-11.0)
[2017-04-20] MEDS: PANTOPRAZOLE 40 MG TABLET.DR PO SCH (07:12)
[2017-04-20 07:13] LABS: ALANINE AMINOTRANSFERASE 20 U/L (12-78); ALBUMIN 2.7 g/dL (3.4-5.0); ALKALINE PHOSPHATASE 133 U/L (46-116); ASPARTATE AMINOTRANSFERASE 17 U/L (15-37); BILIRUBIN,TOTAL 0.8 mg/dL (0.2-1.0); CALCIUM, SERUM 8.4 mg/dL (8.5-10.1); CARBON DIOXIDE 25 mmol/L (21-32); CHLORIDE 107 mmol/L (98-107); CREATININE 0.7 mg/dL (0.6-1.3); GLUCOSE 90 mg/dL (74-106); MAGNESIUM 1.8 mg/dL (1.8-2.4); PHOSPHORUS 3.1 mg/dL (2.5-4.9); POTASSIUM 3.2 mmol/L (3.5-5.1); SODIUM SERUM 143 mmol/L (136-145); TOTAL PROTEIN, SERUM 6.9 g/dL (6.4-8.2); UREA NITROGEN, BLOOD 15 mg/dL (7-18)
--- NOTE | 2017-04-20 07:20 | NUR ---
RN MS NOTES PATIENT IN BED, AWAKE, NO S/SX OF DISTRESS NOTED, TURNED AND REPOSITIONED, OFFLOADED BILATERAL HEELS, NEEDS ATTENDED, SAFETY MEASURES IN PLACED, CALL LIGHT WITHIN REACH, WILL CONTINUE TO MONITOR.
[2017-04-20 08:00] VITALS: BP 107/57
[2017-04-20] MEDS: DILTIAZEM HCL CD 120 MG PO SCH (08:33)
[2017-04-20] MEDS: LACTOBACILLUS RHAMNOSUS GG 1 EACH CAP.SPRINK PO SCH ×2 (08:34→17:31)
[2017-04-20] MEDS: POTASSIUM CHLORIDE 20 MEQ TAB.PRT.SR PO SCH (08:35)
[2017-04-20] MEDS: MULTIVIT, IRON, MIN NO. 8, FA 1 TAB TABLET PO SCH (08:35)
[2017-04-20] MEDS: PROSOURCE / PROSTAT (PYXIS) 30 ML UDC PO SCH (08:35)
[2017-04-20] MEDS: FUROSEMIDE 20 MG TABLET PO SCH (08:35)
[2017-04-20] MEDS: ASCORBIC ACID 500 MG TABLET PO SCH (08:35)
[2017-04-20] MEDS: GABAPENTIN 300 MG CAPSULE PO SCH ×2 (08:35→17:31)
[2017-04-20] MEDS: CALCIUM CARB 600MG /VIT D 1 EACH TABLET PO SCH (08:36)
[2017-04-20] MEDS: HEPARIN SODIUM, PORCINE 5000 UNITS/1 ML VIAL SQ SCH ×2 (08:37→21:32)
[2017-04-20] MEDS: Z GUARD REMEDY 2 OZ OINT TP SCH (08:37)
[2017-04-20] MEDS: CADEXOMER IODINE 40 GM TUBE TP SCH (08:38)
[2017-04-20] MEDS ORDERED: POTASSIUM CHLORIDE 20 MEQ TAB.PRT.SR PO ONE ×2 (10:30→11:15)
[2017-04-20] MEDS: VANCOMYCIN 1 GM in IV D5W 250 ML IV SCH (11:34)
--- NOTE | 2017-04-20 12:00 | NUR ---
RN MS NOTES WOUND TREATMENT RENDERED, TURNED AND REPOSITIONED Q2H SCHEDULED, NO DISTRESS NOTED. WILL CONTINUE TO MONITOR.
[2017-04-20 16:00] VITALS: BP 142/82
[2017-04-20] MEDS ORDERED: LIDOCAINE 1%-EPI 1:100,000 20 ML VIAL TP ONE (16:00)
--- NOTE | 2017-04-20 16:23 | NUR ---
RN MS NOTES DEBRIDEMENT COMPLETED ON LEFT AND RIGHT FOOT BY DR. FITCH AND RONNIE NISSAN SALES CONSULTANT, PATIENT TOLERATED PROCEDURE WELL, NO S/SX OF PAIN, PHOTOS TAKEN AND PLACED IN CHART, WOUND CULTURE SENT TO LAB, WOUNDS COVERED WITH KERLIX, NEEDS ATTENDED AND MET, TURN AND REPOSITIONED, CALL LIGHT WITHIN REACH, WILL CONTINUE TO MONITOR.
--- NOTE | 2017-04-20 17:00 | NUR ---
RN MS NOTES PLACED A CALL TO DR. HYLTON RE: WOUND CULTURE RESULT, WAITING FOR A CALL BACK, DR. MARK AND RONNIE GREEN ALSO AWARE OF RESULTS.
--- NOTE | 2017-04-20 18:39 | NUR ---
RN MS NOTES BARRIOS WEAVER NARROW FABRICS FROM ID AWARE OF WOUND CULTURE RESULT, NO NEW ORDER AT THIS TIME. PATIENT IN STABLE CONDITION, NO DISTRESS NOTED, ALL DUE MEDS GIVEN ORDERED, NEEDS ATTENDED, TURNED AND REPOSITIONED, CALL LIGHT WITHINR EACH, WILL ENDORSE TO VP CONSTRUCTION FOR GOPAL.
--- NOTE | 2017-04-20 19:35 | NUR ---
MSRN AWAKE, CONFUSED, HFR. NEEDS CONSTANT OBSERVATION. IV TO HEPLOCK. REPOSITIONED FOR COMFORT. KEPT COMFORTABLE. CONTINUED.
[2017-04-20 20:00] VITALS: BP 114/62
[2017-04-20 20:03] VITALS: BP 114/62
[2017-04-20] MEDS ORDERED: SIMVASTATIN 20 MG TABLET PO SCH (22:00)
--- NOTE | 2017-04-20 22:00 | NUR ---
MSRN HS CARE STARTED, INCONTINENT, MODERATE AMOUNT STRONG ODOR URINE. ISOLATION PRECAUTIONS OBSERVED. REPOSITIONED FOR COMFORT. PILLOWS IN BETWEEN KNEES, LOWER EXTREMITIES CONTRACTED. BOTH FEET DRESSINGS INTACT. ELEVATED ON PILLOWS. DUE MEDS GIVEN WITH PUDDING TOLERATED.
--- NOTE | 2017-04-21 02:00 | NUR ---
MSRN SLEEPING, APPEARS COMFORTABLE.
[2017-04-21] MEDS: MEROPENEM 1 G in IV NS 0.9% 100 ML IV SCH (05:20)
[2017-04-21] MEDS: VANCOMYCIN 1 GM in IV D5W 250 ML IV SCH (06:06)
--- NOTE | 2017-04-21 06:30 | NUR ---
MSRN ANTIBIOTICS ON PROGRESS. REPOSITIONED, KEPT COMFORTABLE.
[2017-04-21 06:36] LABS: BASOPHILS % (AUTO) 0.1 % (0.0-2.0); EOSINOPHILS # (AUTO) 0.2 /CMM (0.0-0.7); EOSINOPHILS % (AUTO) 2.7 % (0.0-6.0); HEMATOCRIT 39 % (33-45); HEMOGLOBIN 13.3 g/dL (11.5-14.8); LYMPHOCYTES # (AUTO) 1.5 /CMM (0.8-4.8); LYMPHOCYTES % (AUTO) 19.8 % (20.0-44.0); MEAN CORPUSCULAR HEMOGLOBIN 30 PG (26.0-33.0); MEAN CORPUSCULAR HGB CONC 34 g/dl (31.0-36.0); MEAN CORPUSCULAR VOLUME 88 fL (82-100); MONOCYTES # (AUTO) 0.6 /CMM (0.1-1.30); MONOCYTES % (AUTO) 8.3 % (2.0-12.0); NEUTROPHILS # (AUTO) 5.3 /CMM (1.8-8.9); NEUTROPHILS % (AUTO) 69.1 % (43.0-81.0); PLATELET COUNT (AUTO) 303 /CMM (150-450); RDW COEFFICIENT OF VARIATION 13.4 (11.5-15.0); RED BLOOD CELL COUNT(AUTO) 4.45 MIL/uL (4.0-5.2); WHITE BLOOD COUNT (AUTO) 7.6 K/uL (4.3-11.0)
[2017-04-21 07:07] LABS: CALCIUM, SERUM 8.6 mg/dL (8.5-10.1); CARBON DIOXIDE 28 mmol/L (21-32); CHLORIDE 108 mmol/L (98-107); CREATININE 0.7 mg/dL (0.6-1.3); GLUCOSE 85 mg/dL (74-106); MAGNESIUM 1.9 mg/dL (1.8-2.4); PHOSPHORUS 2.8 mg/dL (2.5-4.9); POTASSIUM 3.3 mmol/L (3.5-5.1); SODIUM SERUM 145 mmol/L (136-145); UREA NITROGEN, BLOOD 15 mg/dL (7-18)
--- NOTE | 2017-04-21 07:19 | NUR ---
RN MS NOTES PATIENT IN BED, AWAKE AND ALERT, HOB ELEVATED, NO S/SX OF PAIN OR DISCOMFORT, NO ACUTE DISTRESS NOTED, NEEDS ATTENDED, TURNED AND REPOSITIONED, SAFETY MEASURES IN PLACED, CALL LIGHT WITHIN REACH, WILL CONTINUE TO MONITOR.
[2017-04-21 08:12] VITALS: BP 129/80
[2017-04-21] MEDS: PANTOPRAZOLE 40 MG TABLET.DR PO SCH (08:18)
[2017-04-21] MEDS: DILTIAZEM HCL CD 120 MG PO SCH (08:19)
[2017-04-21] MEDS: MULTIVIT, IRON, MIN NO. 8, FA 1 TAB TABLET PO SCH (08:19)
[2017-04-21] MEDS: CALCIUM CARB 600MG /VIT D 1 EACH TABLET PO SCH (08:19)
[2017-04-21] MEDS: LACTOBACILLUS RHAMNOSUS GG 1 EACH CAP.SPRINK PO SCH ×2 (08:19→17:22)
[2017-04-21] MEDS: ASCORBIC ACID 500 MG TABLET PO SCH (08:19)
[2017-04-21] MEDS: GABAPENTIN 300 MG CAPSULE PO SCH ×2 (08:19→17:22)
[2017-04-21] MEDS: POTASSIUM CHLORIDE 20 MEQ TAB.PRT.SR PO SCH (08:19)
[2017-04-21] MEDS: FUROSEMIDE 20 MG TABLET PO SCH (08:19)
[2017-04-21] MEDS: HEPARIN SODIUM, PORCINE 5000 UNITS/1 ML VIAL SQ SCH (08:20)
[2017-04-21] MEDS: Z GUARD REMEDY 2 OZ OINT TP SCH (08:20)
[2017-04-21] MEDS: PROSOURCE / PROSTAT (PYXIS) 30 ML UDC PO SCH (08:20)
[2017-04-21] MEDS ORDERED: HYDROGEL DRESSING 90 GM TUBE TP PRN (10:00)
[2017-04-21] MEDS ORDERED: HYDROGEL DRESSING 90 GM TUBE TP SCH (10:00)
--- NOTE | 2017-04-21 11:05 | NUR ---
RN MS NOTES INFORMED DR. CISNEROS RE: K LEVEL OF 3.3, PER MD, WILL REVIEW HER MEDS AND LABS, RECEIVED AN ORDER FROM DR. CISNEROS TO DISCHARGE PATIENT TODAY TO SNF. ORDER NOTED AND CARRIED OUT. SUPERVISOR PIPELINE MAINTENANCE MADE AWARE AND DAUGHTER WILL BE NOTIFIED.
[2017-04-21] MEDS ORDERED: CEFTRIAXONE 1 G in IV D5W 50 ML IV SCH (13:00)
[2017-04-21] MEDS ORDERED: CEFTRIAXONE 1 G VIAL IM SCH (13:00)
[2017-04-21 16:00] VITALS: BP 130/79
--- NOTE | 2017-04-21 17:55 | NUR ---
DRILL PRESS OPERATOR FOR METAL NOTES PATIENT DISCHARGED TO [facility], IN STABLE CONDITION, SKIN ASSESSMENT COMPLETED, PHOTO TAKEN OF SACRAL, PHOTOS OF BILATERAL FOOT TAKEN YESTERDAY, WOUND TREATMENT DONE, DRESSING CHANGED, RIGHT UPPER MIDLINE PATENT AND INTACT, REPORT GIVEN TO SHERYL OGDEN CONSTRUCTION QUALITY CONTROL MANAGER, DISCHARGE TEACHING GIVEN TO RN, FAMILIA ALANIS SENT WITH THE PATIENT, LEFT THE FACILITY AT 1755, VIA GURNEY ACCOMPANIED BY 2 COMMUTATOR V RING ASSEMBLER. Addendum: 04/21/17 at 1800 by MARTIR CAMACHO RN ADDENDUM: ALL BELONGINGS SENT WITH THE PATIENT, INCLUDING EYE GLASSES AND FLOWER VASE.
== END 2017-04-21 17:55 | DRG 982 ==
LOC: ER 16:01 → MEDSG2 21:09
PROVIDERS: ADMIT Internal Medicine; ATTEND Internal Medicine Nephrology
PROC: 05H533Z Insertion of Infusion Device into Right Subclavian Vein, Percutaneous Approach (ICD-10-PCS; 2017-04-19)
PROC: 0KBW0ZZ Excision of Left Foot Muscle, Open Approach (ICD-10-PCS; principal; 2017-04-20)
PROC: 0KBV0ZZ Excision of Right Foot Muscle, Open Approach (ICD-10-PCS; 2017-04-20)
DX: I70.235 Atherosclerosis of native arteries of right leg with ulceration of other part of foot (principal); L03.115 Cellulitis of right lower limb; L02.611 Cutaneous abscess of right foot; N39.0 Urinary tract infection, site not specified; M86.8X7 Other osteomyelitis, ankle and foot; L03.116 Cellulitis of left lower limb; I70.245 Atherosclerosis of native arteries of left leg with ulceration of other part of foot; L97.523 Non-pressure chronic ulcer of other part of left foot with necrosis of muscle; L97.514 Non-pressure chronic ulcer of other part of right foot with necrosis of bone; F03.90 Unspecified dementia, unspecified severity, without behavioral disturbance, psychotic disturbance, mood disturbance, and anxiety; B96.20 Unspecified Escherichia coli [E. coli] as the cause of diseases classified elsewhere; E55.9 Vitamin D deficiency, unspecified; E78.5 Hyperlipidemia, unspecified; E87.6 Hypokalemia; F39 Unspecified mood [affective] disorder; I11.0 Hypertensive heart disease with heart failure; I25.10 Atherosclerotic heart disease of native coronary artery without angina pectoris; K21.9 Gastro-esophageal reflux disease without esophagitis; M81.0 Age-related osteoporosis without current pathological fracture; M24.574 Contracture, right foot; M24.575 Contracture, left foot; Z16.12 Extended spectrum beta lactamase (ESBL) resistance; I50.9 Heart failure, unspecified; Z79.899 Other long term (current) drug therapy; Z87.440 Personal history of urinary (tract) infections; G60.9 Hereditary and idiopathic neuropathy, unspecified
CPT/HCPCS: 36415; 71010-TC; 73630-TC; 80048-TC; 80053-TC; 80061-TC; 80202-TC; 81000-TC; 83735-TC; 84100-TC; 84134-TC; 84443-TC; 85025-TC; 85730-TC; 87070-TC; 87081-TC; 87086-TC; 87186-TC; 92521; 93970-TC; A4606; A6248; A6402; A6403; J0696; J1644; J2185; J2543; J3370; J3490; J7030; J7050; J7060; Z7610